=== PATIENT | male | born 1985 | race Caucasian/White ===

== ENCOUNTER 2022-07-14 22:48 | Emergency (ER) | payer MEDICAID, SELFPAY ==
[2022-07-14 22:59] VITALS: BP 140/87; PULSE 77; RESP 16; TEMP 36.8; O2SAT 98; BMI 28.5
[2022-07-14 23:21] VITALS: PULSE 74
--- NOTE | 2022-07-15 00:28 | CT_ITS ---
The [address] [address] Patient Name: VALENTINA PETERSON MRN: [id number] date: 1985 Sex: M Assigned Patient Location: ER Current Patient Location: ER Accession/Order Number: [id number] Exam Date: 07/15/2022 00:45 Report Date: 07/15/2022 01:29 At the request of: LUDY AARON Procedure: CT cervical spine wo con EXAM: CT cervical spine wo con HISTORY: left UE weakness, left UE paresthesia COMPARISON: None. TECHNIQUE: Axial CT images of the cervical spine were obtained without intravenous contrast administration. Reformatted images in coronal and sagittal planes were then acquired using the axial source data. Automated dose lowering techniques and/or adjustment according to patient size were utilized for this examination. FINDINGS: The vertebral body heights are preserved. Cervical spine alignment is maintained without evidence for spondylolisthesis. Mild straightening of the normal cervical lordotic curvature visualized. The dens and atlantodens interval is intact. Normal alignment of the facets visualized. The ring of C1 is intact. The odontoid process is intact. No acute fractures are visualized. The posterior elements are intact. The prevertebral soft tissues appear unremarkable. Cervical spine alignment is maintained without evidence for spondylolisthesis. There is mild to moderate disc height loss at the C5-C6 level. Disc osteophyte complex visualized at the C5-C6 level with mild central canal narrowing. There is moderate right and lode-al-kjnxnbka left neuroforaminal narrowing, secondary to uncovertebral spurring. IMPRESSION: 1. No acute fracture or traumatic malalignment of the cervical spine. 2. Disc osteophyte complex at the C5-C6 level contributes to mild central canal narrowing with moderate right and yput-ad-zsihnpee left neuroforaminal narrowing secondary to uncovertebral spurring. Electronically authenticated by: CARLOS HARMAN Date: 07/15/2022 01:29
--- NOTE | 2022-07-15 00:28 | CT_ITS ---
The [address] [address] Patient Name: VALENTINA PETERSON MRN: [id number] date: 1985 Sex: M Assigned Patient Location: ER Current Patient Location: ER Accession/Order Number: [id number] Exam Date: 07/15/2022 00:45 Report Date: 07/15/2022 01:24 At the request of: LUDY AARON Procedure: CT stroke head/brain wo con EXAM: CT stroke head/brain wo con CLINICAL INDICATION: left UE weakness, left UE paresthesia COMPARISON: None TECHNIQUE: Axial CT images of the brain were obtained without contrast. Dose reduction techniques were achieved by using automated exposure control and/or adjustment of mA and/or kV according to patient size and/or use of iterative reconstruction technique. FINDINGS: Brain parenchyma: No mass effect or midline shift is seen. Gonzalez-white differentiation is maintained. No findings suspicious for intracranial hemorrhage. No findings suggesting acute stroke. Ventricles and extra-axial spaces: Ventricles are concordant with sulci. No findings suggesting hydrocephalus. Visualized paranasal sinuses: No findings suggesting acute sinusitis. Mastoid air cells: Clear. Included portions of the orbits:Included portions of the orbits with no evidence of fracture or other acute pathology. Bones: No fracture is seen. Impression: 1. No acute intracranial process visualized. No findings suspicious for acute stroke by noncontrast head CT. If there is high suspicion for acute intracranial pathology, please note that magnetic resonance imaging or other additional evaluation may be more sensitive than noncontrast head CT. Findings were relayed to Dr. Aaron over telephone by Dr. Harman at 1:24 AM on 07/15/2022. Electronically authenticated by: CARLOS HARMAN Date: 07/15/2022 01:24
--- NOTE | 2022-07-15 00:45 | CT_ITS ---
The [address] [address] Patient Name: VALENTINA PETERSON MRN: [id number] date: 1985 Sex: M Assigned Patient Location: ER Current Patient Location: ER Accession/Order Number: [id number] Exam Date: 07/15/2022 00:45 Report Date: 07/15/2022 01:34 At the request of: LUDY AARON Procedure: CT lumbar spine wo con EXAM: CT lumbar spine wo con HISTORY: low back pain COMPARISON: None. TECHNIQUE: CT of the lumbar spine was acquired without IV contrast and submitted for interpretation. Automated dose lowering techniques and/or adjustment according to patient size were utilized for this examination. FINDINGS: Normal lumbar lordotic curvature is visualized. The vertebral body heights are preserved. Lumbar spine alignment is maintained without evidence for spondylolisthesis. No acute fractures are visualized. Posterior elements are intact. Prevertebral soft tissues appear unremarkable. Intervertebral disc spaces are grossly preserved. L1-L2: No disc herniation/bulge visualized, the central canal and neuroforamina are patent. L2-L3: Minimal disc bulge visualized, the central canal and bilateral neuroforamina are patent. L3-L4: Minimal disc bulge visualized, the central canal and bilateral neuroforamina are patent. L4-L5: There is a left paracentral disc protrusion with superimposed disc bulge, the central canal is patent. The bilateral neuroforamina are patent. L5-S1: Minimal disc bulge visualized, the central canal and bilateral neuroforamina are patent. Appendix partially visualized and appears normal. IMPRESSION: 1. No acute fracture or traumatic malalignment of the lumbar spine. No evidence for high-grade central canal or neuroforaminal narrowing. Electronically authenticated by: CARLOS HARMAN Date: 07/15/2022 01:34
[2022-07-15 00:54] LABS: Basophils Absolute Auto 0.1 10^3/uL (0.0-0.1); Basophils Percent Auto 0.6 % (0.2-2.0); Eosinophils Absolute Auto 0.1 10^3/uL (0.0-0.7); Eosinophils Percent Auto 1.4 % (0.9-7.0); Hematocrit 39.4 % (42.0-54.0); Hemoglobin 13.6 g/dL (14.0-18.0); Immature Granulocytes Abs Auto 0.02 10^3/uL (0.00-0.03); Immature Granulocytes Pct Auto 0.2 % (0.0-0.5); Lymphocytes Absolute Auto 3.7 10^3/uL (1.2-3.8); Lymphocytes Percent Auto 44.3 % (20.5-60.0); Mean Corpuscular HGB Conc 34.5 g/dL (29.9-35.2); Mean Corpuscular Hemoglobin 30.9 pg (25.9-34.0); Mean Corpuscular Volume 89.5 fL (80.0-94.0); Mean Platelet Volume 9.4 fL (9.5-13.5); Monocytes Absolute Auto 0.7 10^3/uL (0.3-0.8); Monocytes Percent Auto 8.5 % (1.7-12.0); Neutrophils Absolute Auto 3.8 10^3/uL (1.4-6.5); Platelet Count 279 10^3/uL (150-450); Red Cell Distribution Width 12.1 % (11.0-15.0); White Blood Count 8.4 10^3/uL (4.0-11.0)
[2022-07-15 01:02] LABS: Bilirubin Urine NEGATIVE (NEGATIVE); Blood Urine TRACE-I (NEGATIVE); Clarity Urine CLEAR (CLEAR); Color Urine LT. YELLOW (YELLOW); Glucose Urine UA NEGATIVE (NEGATIVE); Ketones Urine NEGATIVE (NEGATIVE); Leukocyte Esterase Urine NEGATIVE (NEGATIVE); Nitrite Urine NEGATIVE (NEGATIVE); Protein Urine NEGATIVE (NEG/TRACE); Specific Gravity Urine <=1.005 (1.005-1.025); Urobilinogen Urine 0.2 EU/dL (0.2-1.0)
[2022-07-15 01:08] LABS: Urine Microscopic Indicated NO
[2022-07-15 01:10] LABS: Anion Gap 13.2; BUN Creatinine Ratio 10.4; Calcium 8.8 mg/dL (8.5-10.1); Carbon Dioxide 27.6 mmol/L (21.0-32.0); Chloride 105 mmol/L (98-107); Estimated GFR (African America >60 (>=60); Estimated GFR (Non-African Ame >60 (>=60); Glucose 100 mg/dL (74-106); Potassium 3.8 mmol/L (3.5-5.1); Sodium 142 mmol/L (136-145)
[2022-07-15 01:12] VITALS: BP 131/78; PULSE 60; RESP 20; O2SAT 95
--- NOTE | 2022-07-15 01:36 | ED.GENADUL1 ---
HPI - General Adult General Chief complaint: Back Pain/Injury Stated complaint: upper left arm pain Time Seen by Provider: 07/15/22 00:05 Source: patient Mode of arrival: walk-in Limitations: no limitations History of Present Illness HPI narrative: cc - 2 complaints = 1) low back pain, left greater than right. 2) left UE weakness and tingling. Patient states that the low back has been painful for some time . He cannot recall exactly when he noticed the pain but denied any injury and denied any repetitive injuries that might have caused back pain. No urinary symptoms. No history of kidney stones. No increase in pain with bowel or bladder use. No relief with OTC pain meds. No The left UE symptoms began 2 days ago. He denied pain in the left UE - also denied any neck pain. No recent injury to the neck or arm. he denied sleeping on that arm for a prolonged period of time. he said that he cannot move it through full range of motion or with normal strength - because it is numb from the shoulder to the wrist and then tingling in the left wrist and hand . PMHx includes gastritis and hiatal hernia for which he takes pepcid, protonix and carafate. Related Data Home Medications Medication Instructions Recorded Confirmed famotidine 40 mg tablet 40 mg PO Q12H 07/14/22 07/14/22 pantoprazole 40 mg tablet,delayed 40 mg PO DAILY 07/14/22 07/14/22 release sucralfate 1 gram tablet 1 g PO DAILY 07/14/22 07/14/22 Allergies Allergy/AdvReac Type Severity Reaction Status Date / Time tramadol AdvReac Mild Rash Verified 07/14/22 23:03 [facility] Social History Smoking status: Current every day smoker Exam Narrative Exam Narrative: Nurses notes and vital signs reviewed and patient is not hypoxic. afebrile General: Well-appearing and in no apparent distress. Skin: Warm, dry, no pallor noted. No rash to arm or back. Head: Normocephalic, atraumatic. Neck: Supple, non-tender. Eye: Pupils are equal, round and EOMI. No scleral icterus. Cardiovascular: Regular Rate and Rhythm without murmur, gallop or rub. Respiratory: No accessory muscle use or respiratory distress. Lungs are clear to auscultation, no wheezing, rales or rhonchi Back: left paralumbar soft tissue tenderness > right paralumbar soft tissue tenderness. No midline thoracic or lumbar vertebral tenderness. No CVA tenderness Musculoskeletal: normal ROM, no calf or popliteal tenderness, no lower extremity edema/swelling GI: Abdomen is soft, non-distended. Normal bowel sounds. No masses appreciated. No tenderness to palpation. No rebound, guarding, or rigidity noted. Neurological: A&O x4. No cranial nerve dysfunction observed. No truncal ataxia. Moves all extremities but has difficulty moving the left UE through full and normal ROM - says it isn't working . Sensation in left UE diminished compared with right UE. No LE sensory or motor deficits. Psychiatric: Cooperative and interactive. Normal mood and affect. Constitutional Vital Signs - 24 hr 07/14/22 22:59 07/15/22 01:12 07/15/22 01:47 Temperature 98.2 F Pulse Rate [Monitor] 77 60 56 L Respiratory Rate 16 20 18 Blood Pressure [Left Arm] 140/87 H 131/78 H 131/78 H Pulse Oximetry 98 95 97 Oxygen Delivery Method Room Air Room Air Room Air Course Vital Signs Vital signs: Vital Signs Temperature 98.2 F 07/14/22 22:59 Pulse Rate 77 07/14/22 22:59 Respiratory Rate 16 07/14/22 22:59 Blood Pressure 140/87 H 07/14/22 22:59 Pulse Oximetry 98 07/14/22 22:59 Oxygen Delivery Method Room Air 07/14/22 22:59 Temperature 98.2 F 07/14/22 22:59 Pulse Rate 56 L 07/15/22 01:47 Respiratory Rate 18 07/15/22 01:47 Blood Pressure 131/78 H 07/15/22 01:47 Pulse Oximetry 97 07/15/22 01:47 Oxygen Delivery Method Room Air 07/15/22 01:47 Medical Decision Making MDM Narrative Medical decision making narrative: patient sent for CT scans of the head and cervical spine to assess for his left UE radicular symptoms. Found to have c5-c6 changes. He was also sent for ct lumber spine - nothing acute revealed. his exam is consistent with low back strain. He received oral toradol and robaxin in the ED along with IM SOlumerol once the head CT was reported by radiologist as negative for ICH. He was informed of results and discharged home with prescriptions for robaxin and medrol dose pack. He was instructed to see his PCP with possible neuro referral if his radicular symptoms/paresthesias do not resolve. Lab Data Labs: Lab Results 07/15/22 07/15/22 Range/Units 00:42 00:45 WBC 8.4 (4.0-11.0) 10^3/uL RBC 4.40 L (4.70-6.10) 10^6/uL Hgb 13.6 L (14.0-18.0) g/dL Hct 39.4 L (42.0-54.0) % MCV 89.5 (80.0-94.0) fL MCH 30.9 (25.9-34.0) pg MCHC 34.5 (29.9-35.2) g/dL RDW 12.1 (11.0-15.0) % Plt Count 279 (150-450) 10^3/uL MPV 9.4 L (9.5-13.5) fL Neut % (Auto) 45.0 (43.0-75.0) % Lymph % (Auto) 44.3 (20.5-60.0) % Castro % (Auto) 8.5 (1.7-12.0) % Eos % (Auto) 1.4 (0.9-7.0) % Baso % (Auto) 0.6 (0.2-2.0) % Neut # (Auto) 3.8 (1.4-6.5) 10^3/uL Lymph # (Auto) 3.7 (1.2-3.8) 10^3/uL Castro # (Auto) 0.7 (0.3-0.8) 10^3/uL Eos # (Auto) 0.1 (0.0-0.7) 10^3/uL Baso # (Auto) 0.1 (0.0-0.1) 10^3/uL Abs Immat Gran (auto) 0.02 (0.00-0.03) 10^3/uL Imm/Tot Granulo (auto) 0.2 (0.0-0.5) % Sodium 142 (136-145) mmol/L Potassium 3.8 (3.5-5.1) mmol/L Chloride 105 (98-107) mmol/L Carbon Dioxide 27.6 (21.0-32.0) mmol/L Anion Gap 13.2 BUN 12.0 (7.0-18.0) mg/dL Creatinine 1.15 (0.70-1.30) mg/dL Est GFR ( Amer) >60 (>=60) Est GFR (Non-Af Amer) >60 (>=60) BUN/Creatinine Ratio 10.4 Glucose 100 (74-106) mg/dL Calcium 8.8 (8.5-10.1) mg/dL Urine Color Lt. yellow (YELLOW) Urine Clarity Clear (CLEAR) Urine pH 6.0 (5.0-9.0) Ur Specific Linton <=1.005 A (1.005-1.025) Urine Protein Negative (NEG/TRACE) mg/dL Urine Glucose (UA) Negative (NEGATIVE) mg/dL Urine Ketones Negative (NEGATIVE) mg/dL Urine Occult Blood Trace-i (NEGATIVE) Urine Nitrite Negative (NEGATIVE) Urine Bilirubin Negative (NEGATIVE) Urine Urobilinogen 0.2 (0.2-1.0) EU/dL Ur Leukocyte Esterase Negative (NEGATIVE) Imaging Data ct cervical spine: Radiologist's impression: FINDINGS: The vertebral body heights are preserved. Cervical spine alignment is maintained without evidence for spondylolisthesis. Mild straightening of the normal cervical lordotic curvature visualized. The dens and atlantodens interval is intact. Normal alignment of the facets visualized. The ring of C1 is intact. The odontoid process is intact. No acute fractures are visualized. The posterior elements are intact. The prevertebral soft tissues appear unremarkable. Cervical spine alignment is maintained without evidence for spondylolisthesis. There is mild to moderate disc height loss at the C5-C6 level. Disc osteophyte complex visualized at the C5-C6 level with mild central canal narrowing. There is moderate right and pswg-bt-nklrkeas left neuroforaminal narrowing, secondary to uncovertebral spurring. IMPRESSION: 1. No acute fracture or traumatic malalignment of the cervical spine. 2. Disc osteophyte complex at the C5-C6 level contributes to mild central canal narrowing with moderate right and nxbo-[id number]-sanfkvql left neuroforaminal narrowing secondary to uncovertebral spurring. Electronically authenticated by: CARLOS HARMAN Date: 07/15/2022 01:29 CT scan - head: Radiologist's impression: FINDINGS: Brain parenchyma: No mass effect or midline shift is seen. Gonzalez-white differentiation is maintained. No findings suspicious for intracranial hemorrhage. No findings suggesting acute stroke. Ventricles and extra-axial spaces: Ventricles are concordant with sulci. No findings suggesting hydrocephalus. Visualized paranasal sinuses: No findings suggesting acute sinusitis. Mastoid air cells: Clear. Included portions of the orbits:Included portions of the orbits with no evidence of fracture or other acute pathology. Bones: No fracture is seen. Impression: 1. No acute intracranial process visualized. No findings suspicious for acute stroke by noncontrast head CT. If there is high suspicion for acute intracranial pathology, please note that magnetic resonance imaging or other additional evaluation may be more sensitive than noncontrast head CT. Findings were relayed to Dr. Haynes over telephone by Dr. Harman at 1:24 AM on 07/15/2022. Electronically authenticated by: CARLOS HARMAN Date: 07/15/2022 01:24 ct lumbar spine: Radiologist's impression: FINDINGS: Normal lumbar lordotic curvature is visualized. The vertebral body heights are preserved. Lumbar spine alignment is maintained without evidence for spondylolisthesis. No acute fractures are visualized. Posterior elements are intact. Prevertebral soft tissues appear unremarkable. Intervertebral disc spaces are grossly preserved. L1-L2: No disc herniation/bulge visualized, the central canal and neuroforamina are patent. L2-L3: Minimal disc bulge visualized, the central canal and bilateral neuroforamina are patent. L3-L4: Minimal disc bulge visualized, the central canal and bilateral neuroforamina are patent. L4-L5: There is a left paracentral disc protrusion with superimposed disc bulge, the central canal is patent. The bilateral neuroforamina are patent. L5-S1: Minimal disc bulge visualized, the central canal and bilateral neuroforamina are patent. Appendix partially visualized and appears normal. IMPRESSION: 1. No acute fracture or traumatic malalignment of the lumbar spine. No evidence for high-grade central canal or neuroforaminal narrowing. Electronically authenticated by: CARLOS HARMAN Date: 07/15/2022 01:34 Discharge Plan Discharge Chief Complaint: Back Pain/Injury Clinical Impression: Strain of lumbar region, Cervical radiculopathy Time of Disposition Decision: 01:50 Condition: Good Prescriptions / Home Meds: No Action sucralfate 1 gram tablet 1 g PO DAILY famotidine 40 mg tablet 40 mg PO Q12H pantoprazole 40 mg tablet,delayed release (DR/EC) 40 mg PO DAILY Instructions: Low Back Strain (ED), Cervical Radiculopathy (ED) Stand Alone Forms: Portal Instructions Referrals: TREE NEGRON [Primary Care Provider] - 1 week
[2022-07-15 01:47] VITALS: BP 131/78; PULSE 56; RESP 18; O2SAT 97
[2022-07-15] MEDS: KETOROLAC TROMETHAMINE 10 MG TABLET PO (01:58)
[2022-07-15] MEDS: METHOCARBAMOL 500 MG TABLET PO (01:59)
[2022-07-15] MEDS: METHYLPREDNISOLONE SOD SUCC PF 125 MG/2 ML VIAL IM (02:10)
== END 2022-07-15 02:20 | disposition home or self-care (01) ==
PROVIDERS: Emergency Provider Emergency Medicine; PCP Family Medicine
DX: S39.012A Strain of muscle, fascia and tendon of lower back, initial encounter (principal); M54.12 Radiculopathy, cervical region; K44.9 Diaphragmatic hernia without obstruction or gangrene; Z79.899 Other long term (current) drug therapy
CPT/HCPCS: 36415; 70450; 72125; 72131; 80048; 81003; 85025; 96372; 99284; J2930